=== PATIENT | female | born 1955 | race Caucasian/White ===

== ENCOUNTER → 2021-09-10 11:23 | Outpatient (CLI) | payer MEDICARE, OTHER, SELFPAY ==
[2021-09-10 12:12] LABS: Hemoglobin A1C% w Est Avg Glu 4.8 % (4.0-6.0)
[2021-09-10 12:19] LABS: Alanine Aminotransferase 21 IU/L (<35); Albumin 4.6 g/dL (3.5-5.0); Albumin Globulin Ratio 1.6 (1.0-2.8); Alkaline Phosphatase 75 U/L (38-126); Aspartate Aminotransferase 26 IU/L (14-36); BUN Creatinine Ratio 13.2 (6-22); Bilirubin Total 0.7 mg/dL (0.2-1.3); Blood Urea Nitrogen 12 mg/dL (7-17); Calcium 9.5 mg/dL (8.4-10.2); Carbon Dioxide 31 mmol/L (22-32); Chloride 100 mmol/L (98-107); Cholesterol 190 mg/dL (140-199); Estimated Glomerular Filt Rate > 60.0 mL/min (>60); Globulin 2.8 g/dL (1.7-4.1); Glucose 88 mg/dL (80-110); HDL Cholesterol 62 mg/dL (40-60); HEMOLYSIS < 15 (0-50); LDL Cholesterol Calculated 105 mg/dL (<100); Potassium 4.5 mmol/L (3.4-5.1); Sodium 139 mmol/L (137-145); Total Protein 7.4 g/dL (6.3-8.2); Triglycerides 115 mg/dL (35-150)
[2021-09-10 12:20] LABS: Add Manual Diff / Slide Review NO; Basophils Absolute Auto 0 /uL (0-100); Basophils Percent Auto 0.5 % (0-2); Eosinophils Absolute Auto 200 /uL (0-450); Eosinophils Percent Auto 2.3 % (2-4); Hematocrit 41.7 % (36-46); Hemoglobin 14.3 g/dL (12.0-16.0); Lymphocytes Absolute Auto 2100 /uL (1100-4500); Lymphocytes Percent Auto 31.6 % (25-40); Mean Corpuscular HGB Conc 34.4 % (30-36); Mean Corpuscular Hemoglobin 31.5 PG (26-34); Mean Corpuscular Volume 91.5 fL (80-100); Monocytes Absolute Auto 300 /uL (0-900); Neutrophils Absolute Auto 3900 /uL (1500-7000); Neutrophils Percent Auto 60.6 % (50-75); Platelet Count 278 X10^3/uL (150-400); Red Blood Cell Count 4.55 X10^6/uL (4.0-5.2); Red Cell Distribution Width 12.6 % (11.6-14.8); White Blood Cell Count 6.5 X10^3/uL (4.5-11.0)
[2021-09-10 12:34] LABS: Vitamin D 25 Hydroxy (D3) 60.9 ng/mL (30.0-100.0)
--- NOTE | 2021-09-10 12:46 | DI.US.S_ITS ---
PROCEDURE: US THYROID INDICATIONS: HISTORY ENLARGED THYROID, HYPOTHYROIDISM TECHNIQUE: Real-time scanning was performed of the thyroid gland, with image documentation. COMPARISON: None. FINDINGS: Right: Thyroid lobe measures 3.8 x 1.1 x 1.8 cm, and is homogeneous in echotexture. Left: Thyroid lobe measures 3.5 x 1.4 x 1.2 cm, and is homogenous in echotexture. Isthmus: 2.8 mm thick. Nodule number: 1 Location: Inferior left Size: 0.5 x 0.3 x 0.3cm. Composition: Solid Echogenicity: Hypoechoic Shape: wider than tall. Margins: Small Echogenic foci: Non Total points: 4 ACR TI-RADS category: 4 Nodule number: 2 Location: Superior right Size: 2.2 x 1.0 x 1.2 cm. Composition: Solid Echogenicity: Hypoechoic Shape: wider than tall. Margins: Small Echogenic foci: Non4 Total points: 4 ACR TI-RADS category: 4 IMPRESSION: 1. Bilateral moderately suspicious thyroid nodules. 2. Recommend fine-needle aspiration biopsy of the right superior pole nodule. . ACR TI-RADS definitions and recommendations: TI-RADS 1 (benign): 0 points. FNA not needed. TI-RADS 2 (not suspicious): 2 points. FNA not needed. TI-RADS 3 (mildly suspicious): 3 points. * FNA if 2.5 cm or larger, follow up if 1.5 cm or larger (at 1, 3, and 5 years). TI-RADS 4 (moderately suspicious): 4-6 points. * FNA if 1.5 cm or larger, follow up if 1 cm or larger (at 1, 2, 3, and 5 years). TI-RADS 5 (highly suspicious): 7 points or more. * FNA if 1 cm or larger, follow up if 0.5 cm or larger (every year for 5 years). Dictated by: Ann Escobar M.D. on 09/10/2021 at 15:22 Approved by: Ann Escobar M.D. on 09/10/2021 at 15:28
[2021-09-10 12:48] LABS: TSH w/ Reflex to FT4 0.48 uIU/mL (0.47-4.68)
[2021-09-10 17:00] LABS: Microalbumin Urine Random < 0.6 mg/dL (0-1.6)
== END ==
PROVIDERS: PCP Family Medicine; Referring Provider Family Medicine; Visit Provider Family Medicine
DX: E04.2 Nontoxic multinodular goiter (principal); E03.9 Hypothyroidism, unspecified; E11.9 Type 2 diabetes mellitus without complications; E78.5 Hyperlipidemia, unspecified; E55.9 Vitamin D deficiency, unspecified; I10 Essential (primary) hypertension
CPT/HCPCS: 36415; 76536; 80053; 80061; 82043; 82306; 82570; 83036; 84443; 85025

== ENCOUNTER → 2021-09-28 10:08 | Outpatient (CLI) | payer MEDICARE, OTHER, SELFPAY ==
--- NOTE | 2021-09-28 | PATH_ITS ---
Note [facility] Accession Number: [id number] TESTS RESULT FLAG UNITS REF RANGE LAB Clinician Provided Cytology Information No. of containers..01 Other (Miscellaneous) No. of containers..02 Previously Prepared Cytology Slide Source: RIGHT THYROID NODULE DIAGNOSIS: RIGHT THYROID NODULE NEGATIVE FOR MALIGNANT CELLS. BETHESDA CATEGORY II - BENIGN. SPECIMEN CONSISTS OF BENIGN FOLLICULAR CELLS, HEMOSIDERIN-LADEN MACROPHAGES, COLLOID, AND BLOOD. THIS PATTERN IS CONSISTENT WITH A COLLOID NODULE. Pathologist ICD10: 02 E04.1 Clinical history: Right: Thyroid lobe measures 3.8 x 1.1 x 1.8 cm, and is homogeneous in echotexture. Left: Thyroid lobe measures 3.5 x 1.4 x 1.2 cm, and is homogenous in echotexture. Isthmus: 2.8 mm thick. Signed out by: Gordo William MD, PhD, Pathologist NPI- [id number] Performed by: Nathaniel Hilario, [employer] ([facility]) Gross description: 30 CC, RED, CLEAR /LCS 09/29/2021 0827 Local FLAG LEGEND: L-Low Normal,H-High Normal,LL-Alert Low,HH-Alert High <-Panic Low,>-Panic High,A-Abnormal,AA-Critical Abnormal Performed at: 01 =Z [facility] [address] [place] [address], [place] [address] Ger Collado MD, 02 [facility] [address] [place] [address] Lesvia Silver MD, Performed at: 01 [facility] [address] [place] [address], [place], [place] [id number] MD Ger Collado MD Phone: [phone]
--- NOTE | 2021-09-28 10:11 | DI.US.S_ITS ---
PROCEDURE: US FINE NEEDLE ASPIRATION INDICATIONS: moderately suspicious thyroid nodule TECHNIQUE: The indications, alternatives, benefits, risks, and complications of the procedure were explained to the patient. Written informed consent was obtained and placed in the chart. The thyroid region was examined sonographically and a site was chosen for ultrasound guided percutaneous sampling. The skin was prepared and draped in the usual fashion, and anesthetized with 1% lidocaine infiltrated from the skin down to the thyroid gland. Multiple passes were then performed, with contents emptied into an appropriate pathology specimen container. A bandage was applied to the area of access at completion of the study. COMPARISON: [facility], , US THYROID, 09/10/2021, 13:19. FINDINGS: Location(s) of lesion(s) sampled: Right lobe nodule [place]: 25 gauge hypodermic needles. Number of passes: 6 Medications: 1% lidocaine for local anaesthesia. Complications: None. IMPRESSION: Successful ultrasound-guided thyroid nodule fine needle aspiration, with cytology results pending. Please see chart below for management recommendations based on cytology results. [facility] ReportingRecommendationsNon-diagnostic* Repeat US-guided FNA, with on-site cytology evaluation if possible. * Repeated non-diagnostic nodules without high suspicion US features: close observation vs surgical consult. * Consider surgery if nodule has high suspicion US features, grows >20% in 2 dimensions on followup, or patient has clinical risk factors for malignancy. Benign* If nodule has high suspicion US features: repeat US and FNA within 12 months. * If nodule has low to intermediate suspicion US features: repeat US at 12-24 months. If nodule grows (20% increase in at least 2 dimensions, with minimal increase of 2 mm or >50% change in volume), or development of new suspicious US features, then repeat FNA or continue followup. * If nodule has very low suspicion US features: followup US at >24 months. Atypia of undetermined significance, follicular lesion of undetermined significanceRepeat FNA, molecular testing, followup US, or surgical consult.Follicular neoplasm, suspicious for follicular neoplasmSurgical consult; also consider molecular testing. Suspicious for malignancySurgical consult.MalignantSurgical consult. Dictated by: Kaur Carpio MD, PhD on 09/28/2021 at 11:52 Approved by: Kaur Carpio MD, PhD on 09/28/2021 at 11:52
== END ==
PROVIDERS: PCP Family Medicine; Referring Provider Family Medicine; Visit Provider Family Medicine
DX: E04.1 Nontoxic single thyroid nodule (principal)
CPT/HCPCS: 10005

== ENCOUNTER → 2021-09-30 13:40 | Outpatient (CLI) | payer MEDICARE, OTHER, SELFPAY ==
--- NOTE | 2021-09-30 16:53 | DIAB.MNT ---
Initial Diabetes Medical Nutrition Therapy Assessment Name: Deyanira Smith (Radha) Date: 09/30/21 Time: 2-330p Dx: Type II Diabetes Provider: Adryan Worrell Learning Style: Watching, hands on, reading Radha presents today for initial nutrition visit. States she has had prediabetes or diabetes since 2005 or 2006. States she cannot recall a FBG or HgA1c high enough for DM, but she is unsure. Reports h/o hypoglycemia as a young adult and child, indicating potential for pancreas over production of insulin and BG management issues. Taking Metformin 500 mg daily with hgA1c of 4.8% and FBG of 88 mg/dL. She tells me today that her main goal this year is to get off medications, primarily Metformin, statin, and losartan. In terms of Metformin, if provider agrees, she could trial d/c of Metformin given low hgA1c and FBG. Asked her to discuss this further with her PCP. Her recent total cholesterol was in goal, but LDL was slightly elevated. Also, she reports a h/o of HTN, HLD, and stroke with her father. Radha describes a long history of weight management struggles beginning when she was age 39 and rx'd prednisone for 6 weeks for asthma. This resulted i n a 50# weight gain. She was dx with Hashimotos and started menopause in her 50s. She experienced the loss of her first from cancer two years prior and struggled with depression which also resulted in weight gain. Radha reports h/o being very active with work and body building. She seems very motivated to lose weight. Her goal weight is 135#, but states she has never been able to get below 170# as an older adult. She has tried weight watchers, medically assisted weight loss, very low calorie diets, and medications for weight loss. She continues to track her food intake and aims for 8952-9184 kcals per day. In the past year she has been very successful in her weight loss. Since tracking food she has lost 24#, 6 off her waist, and lost 4% body fat per her lazara and scale. Diet Recall: 10a: lemon water with tsp honey, tea with half n half and fruit smoothie with protein OR eggs 2p: bone broth with lemon and tsp whipped butter 4p: popcorn and dates OR paleobar (9g sat fat) OR trail mix 6-7p: meal prep low carb meals (pro 30-45g, CHO 15-20g, Na 600-1600mg, sat fat 6-12g) 8p: fruit Anthropometrics: Ht: 5'5 Wt: 177# reported Weight history: UBW 170-180# reported goal: 135# oct 2020: 201.6# Physical Activity: 5k steps per day or less. Main barrier is exercise induced asthma. Walks stairs 4-6 x in succession q day for exercise. Uses pilates reformer 3 x per week. Wt lifting UE hand wts daily. Has a treadmill in the basement, but states it is too cold right now. Self-Monitoring Blood Glucose: None and likely not indicated per HgA1c. Diabetes Medications: 500 mg Metformin Pertinent Labs: 09/22 HgA1c: 4.8% Glucose 88 Cholesterol: 190 LDL: 105 H HDL: 62 T Past Medical History: (Last Updated 09/03/21 @ 13:01 by Dominik Cornelius MD) Acquired hypothyroidism Chronic pain syndrome DM2 (diabetes mellitus, type 2) Hyperlipidemia Hypertension Osteoarthritis cervical spine Nutrition Rx: [id number] kcals 2000-2300mg Na 7-9g saturated fat Nutrition Diagnosis: - Excessive Na intake r/t convenience meals aeb pt report and nutrient info - Suboptimal physical activity r/t low step count indicating increased sedentary time aeb pt report - Excessive saturated fat intake r/t convenience meals and snacks aeb diet recall Intervention: This participant was very receptive. Provided appropriate educational handouts. Discussed the following topics: Completed intake assessment. Discussed barriers to care. Metabolic impact of her health hx and weight changes Pathophysiology of T2DM or prediabetes with pancreas insufficiencies HgA1c and FBG current and at goal Plate Method, pairing macronutrients Recommended nutrition rx for heart health and Dm Heart health nutrition: Na, sat fat, fiber Brainstormed physical activity goals Cholesterol and genetics and aging LBM changes and age and menopause Potential for more realistic weight goals and focusing more on increasing LBM and decreasing waist circumference Created SMART goals for patient self-care and success. Goals: Aim for 7500 steps per day Call insurance about MNT coverage Read food labels for sat fat and sodium Follow-up: DARLENE ROUSE follow-up in 3-4 weeks Seems as though Radha is doing very well with managing her DM. Her diet seems fairly balanced, with exception of the sat fat and sodium intake mostly at dinner. She has been told by providers in [place] that she needs to eat less. Seems she is doing well with 5467-0787 kcals per day. Weight loss has been very important to her historically. There is certainly some considerations that may make weight changes more difficult, ie age, menopause, thyroid. With that being said, increasing steps and LBM may benefit her metabolically. She reports that her weight often goes down and then she re-gains. Will follow-up with her to try and mitigate the re-gain and offer education/accountability support. Nadege Conley RDN, [facility] Certified Diabetes Care and Pot [employer]r P: [phone] Thank you for this referral
== END ==
PROVIDERS: PCP Family Medicine; Referring Provider Family Medicine; Visit Provider Family Medicine
DX: E11.9 Type 2 diabetes mellitus without complications (principal); Z79.84 Long term (current) use of oral hypoglycemic drugs
CPT/HCPCS: 97802

== ENCOUNTER → 2021-10-15 11:32 | Outpatient (CLI) | payer MEDICARE, OTHER, SELFPAY ==
--- NOTE | 2021-10-15 11:34 | DI.MG.S_ITS ---
BILATERAL DIGITAL SCREENING MAMMOGRAM 3D/2D WITH CAD: 10/15/2021 CLINICAL: Routine screening. Comparison is made to exams dated: 07/11/2020 mammogram, 07/19/2019 mammogram, and 07/11/2018 mammogram - outside facility. There are scattered fibroglandular elements in both breasts. Current study was also evaluated with a Computer Aided Detection (CAD) system. No significant masses, calcifications, or other findings are seen in either breast. There has been no significant interval change. IMPRESSION: NEGATIVE There is no mammographic evidence of malignancy. A 1 year screening mammogram is recommended. This exam was interpreted at Station ID: [id number]. NOTE: For mammograms, a report in lay terms will be sent to the patient. Approximately 15% of breast malignancies will not be visualized mammographically. In the management of a palpable breast mass, a negative mammogram must not discourage biopsy of a clinically suspicious lesion. Electronically Signed By: Ger macdonald/jean:10/15/2021 15:55:19 letter sent: Normal Exam ACR BI-RADS Category 1: Negative [id number]
== END ==
PROVIDERS: PCP Family Medicine; Referring Provider Family Medicine; Visit Provider Family Medicine
DX: Z12.31 Encounter for screening mammogram for malignant neoplasm of breast (principal); E03.9 Hypothyroidism, unspecified
CPT/HCPCS: 77063; 77067

== ENCOUNTER → 2021-10-29 13:04 | Outpatient (CLI) | payer MEDICARE, OTHER, SELFPAY ==
[2021-10-29 13:57] LABS: COVID19 -Nasal RAPID Negative (Negative)
== END ==
PROVIDERS: PCP Family Medicine; Referring Provider Internal Medicine; Visit Provider Internal Medicine
DX: Z20.822 Contact with and (suspected) exposure to COVID-19 (principal)
CPT/HCPCS: 87635; C9803

== ENCOUNTER → 2021-10-29 13:06 | Outpatient (CLI) | payer MEDICARE, OTHER, SELFPAY ==
--- NOTE | 2021-10-29 15:23 | DIAB.MNTFU ---
Follow-up Diabetes Medical Nutrition Therapy Assessment Name: Deyanira Smith (Radha) Date: 10/29/21 Time: 150-250p Dx: Type II Diabetes Radha presents for follow-up visit. PCP has d/c'd Metformin given recent WNL HgA1c. Radha continues to feel unsatisfied with her body weight and shape. Feels the central adiposity is unhealthy and wants to have the goal of 135#. She is willing to adjust this goal temporarily to just get under 170# which seems realistic. Cont tracking food intake with lazara. Aiming for 1200-1300kcals. She is wondering if she should adjust her macros. Currently eating 50% carbs, 40% fat and 10%protein per lazara stats for last week. Essentially not getting quite enough protein and over consuming fat kcals. Radha's main barrier to weight loss may be physical activity and perhaps metabolic barriers (age, thyroid, menopause). Provider has offered her medication to assist with weight loss, but she is not certain she wants to go that route. States she is scheduled for her regular eye appt next month. Has not found a dentist since moving here. Was due for exam and cleaning last Aug. Has questions about Na recs per day and per meal. Has been label reading. Anthropometrics: Ht: 5'5 Wt: 174.1# reported home wt, approx 3# loss in one month Weight history: 177# last visit reported UBW 170-180# reported goal: 135# oct 2020: 201.6# Physical Activity: continues to use stairs for exercise. Endorses slight increase in steps per day of 5-6k (previously 4-5k). Pilates machine broken, but normally does this 3 x per week. Has been rollerskating instead, but had a recent fall that req ED visit. CT scan completed and clear per pt. Getting pulmonary test today and hoping for inhaler that will work for her. Albuterol causes cough. New inhaler from PCP >$200 per month per her report. Self-Monitoring Blood Glucose: None Diabetes Medications: none (recent d/c of Metformin) Pertinent Labs: 09/22 HgA1c: 4.8% Glucose 88 Cholesterol: 190 LDL: 105 H HDL: 62 T Past Medical History: (Last Reviewed 10/26/21 @ 14:45 by Hernán Obrien MD) Acquired hypothyroidism (~2005) Gagandeep's Actinic keratosis (~2004) Allergies Asthma (~1993) Cervical spine disease (~1993) Chicken pox Chlamydia and trichomoniasis; multiple times in the 70's Chronic cough (~1993) Chronic neck pain (~1993) Chronic pain syndrome CMV (cytomegalovirus infection) (~1979) Depression 1996 and 2003 DM2 (diabetes mellitus, type 2) Fractures (~1962) Right arm Headache (~1993) Hepatitis (~1969) History of left salpingo-oophorectomy Hyperlipidemia Hypertension Knee pain (~2019) Measles Mumps Osteoarthritis cervical spine Pneumonia x2, age 6 and 20 Psoriasis (~2004) Psoriatic arthritis (~2019) Rosacea (~2009) S/P cervical spinal fusion (~1998) Shoulder pain (~1993) Skin cancer (~2017) Basal and squamous Sleep apnea (~2007) Vertigo Multiple times Wears glasses Nutrition Rx: [id number] kcals: 40-45% carbs, 30% fat, 30% pro 2000-2300mg Na 7-9g saturated fat Nutrition Diagnosis: - Excessive Na intake r/t convenience meals aeb pt report and nutrient info- in progress - Suboptimal physical activity r/t low step count indicating increased sedentary time aeb pt report- improved - Excessive saturated fat intake r/t convenience meals and snacks aeb diet recall- in progress Intervention: This participant was very receptive. Provided appropriate educational handouts. Discussed the following topics: Macronutrient distribution recs and kcal recs Na recs per day and per meal Impact of metabolic factors and physical activity on weight motivation for weight loss and goal weight Diabetes risk reduction: dental, eye Created SMART goals for patient self-care and success. Goals: Aim for 7500 steps per day- in progress Call insurance about MNT coverage- met Read food labels for sat fat and sodium- met Find a dentist- new Adjust macros as discussed- new Cont to work on physical activity safely- new Follow-up: DARLENE MADERAES follow-up in 3 months Radha would like to follow-up since she cont to aim for weight loss and also somewhat worries that her BG could increase now that she is off Metformin. She can likely be d/c'd from DM ed program in my opinion, but will provide support in the interim for her goals until next HgA1c. It seems the main barrier is physical activity. Hopefully with a new inhaler she can improve her physical activity time. Nadege Conley RDN, [facility] Certified Diabetes Care and Textile Conservator P: [phone] Thank you for this referral
== END ==
PROVIDERS: PCP Family Medicine; Referring Provider Family Medicine; Visit Provider Family Medicine
DX: E11.9 Type 2 diabetes mellitus without complications (principal); Z71.3 Dietary counseling and surveillance
CPT/HCPCS: 97803

== ENCOUNTER → 2021-10-29 13:08 | Outpatient (CLI) | payer MEDICARE, OTHER, SELFPAY ==
--- NOTE | 2021-11-04 09:24 | PM.PFT.1 ---
Pulmonary Function Test Referral & Results Date Patient Seen: 10/29/21 Requesting provider: Dominik Cornelius Results: The spirometry demonstrates an FVC of 2.54 L which is 79% of predicted. The FEV1 was measured at 2.09 L which is 85% of predicted. The FEV1/FVC ratio was 82 which is 106% of predicted. Following the administration of bronchodilator there was no appreciable change. Lung volumes show an SVC of 2.56 L which is 84% of predicted. The diffusing capacity was measured at 17.77 which is 69% of predicted. No hemoglobin value was provided, so no correction for potential anemia could be made, if appropriate. The maximum voluntary ventilation was reduced Interpretation: This study demonstrates probably normal spirometry. There is a reduction in diffusing capacity suggesting mild to moderate disease at the capillary alveolar level. There is also reduction in maximum voluntary ventilation although this is minimal in the absence of significant spirometric abnormalities this suggest the possibility of neuromuscular disease Clinical correlation suggested
== END ==
PROVIDERS: PCP Family Medicine; Referring Provider Family Medicine; Visit Provider Family Medicine
DX: J45.909 Unspecified asthma, uncomplicated (principal); J98.8 Other specified respiratory disorders; Z20.822 Contact with and (suspected) exposure to COVID-19; Z87.891 Personal history of nicotine dependence
CPT/HCPCS: 87635; 94060; 94726; 94729; C9803

== ENCOUNTER → 2021-11-04 08:59 | Outpatient (CLI) | payer MEDICARE, OTHER, SELFPAY ==
--- NOTE | 2021-11-04 09:00 | DI.MRI.S_ITS ---
PROCEDURE: MR STROKE Pre- and post-contrast brain MRI, non-contrast brain MR angiogram, pre- and postcontrast neck MR angiogram INDICATIONS: Transient neurologic deficit TECHNIQUE: Brain: Noncontrast axial T1 spin echo, axial T2 fast spin echo, sagittal and axial FLAIR, coronal T2 fast spin echo, axial gradient echo, axial diffusion and ADC through the brain. After the administration of contrast, axial 3D VIBE of the cranial vasculature and brain. Brain MRA: Non-contrast 3-D time of flight MR angiogram, with multiple kqbqreu-lwuuzatku-ciznbrxoyg (MIP) reformats performed. Neck MRA: Axial and sagittal TruFISP through the neck. Coronal dynamic MR angiogram during administration of contrast in the arterial and venous phases, with 3-dimenstional lhfujbb-jizseexxp-yrsvzgyeuj (MIP) reformats constructed from subtraction images. COMPARISON: None. FINDINGS: Image quality: Excellent. BRAIN: CSF spaces: Ventricles are normal in size and shape. Basal cisterns are patent. No extra-axial fluid collections. Brain: No intracranial bleeds or mass effects. Carvajal-white matter interface is normal. Diffusion weighted images show no acute ischemic insults. Brainstem appears normal. Normal intravascular flow voids are present. No abnormal intracranial enhancement. Skull and face: Calvarial marrow signal is normal. Orbits appear normal. Sinuses: Sinuses and mastoids are clear. BRAIN MR ANGIOGRAM: Anterior circulation: Intracranial internal carotid arteries are normal in size and enhancement. The flow within the paired anterior cerebral arteries is normal and symmetric. The flow within the middle cerebral arteries is normal and symmetric. The anterior communicating artery is seen. No stenoses, occlusions, or aneurysms. Diminutive left vertebral artery terminates in the left posterior inferior cerebellar artery. 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 The P2 segments supplied by a widely patent posterior communicating arteries. The flow within the remaining posterior cerebral arteries is normal and symmetric. No stenoses, occlusions, or aneurysms. NECK MR ANGIOGRAM: Carotids: Great vessels demonstrate a conventional anatomy as they arise from the aortic arch. The origins of the common carotid arteries appear patent. The calibers and courses of both common carotid arteries are normal. The bifurcation regions appear normal bilaterally. The internal carotid arteries demonstrate normal course and caliber. Posterior circulation: Right vertebral artery dominance. 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 Origin of the left vertebral artery is not well evaluated, and may be below the threshold of detection Miscellaneous: Subclavian arteries appear patent. Pre-contrast images through the neck show no soft tissue abnormalities. IMPRESSION: BRAIN MRI: Mild atrophy and multifocal white matter chronic ischemic change without intracranial hemorrhage, infarct or mass lesion. BRAIN MR ANGIOGRAM: Unremarkable intracranial vascularity without aneurysm, large vessel occlusion or vascular malformation. NECK MR ANGIOGRAM: No evidence of hemodynamically significant stenosis. Origin of the left congenitally diminutive vertebral artery not well evaluated. Approved by: Lance Shaikh M.D. on 11/04/2021 at 13:33
== END ==
PROVIDERS: PCP Family Medicine; Referring Provider Family Medicine; Visit Provider Family Medicine
DX: G45.9 Transient cerebral ischemic attack, unspecified (principal)
CPT/HCPCS: 70548; 70553; A9579

== ENCOUNTER → 2021-11-19 10:11 | Outpatient (CLI) | payer MEDICARE, OTHER, SELFPAY | PROVIDERS: PCP Family Medicine; Referring Provider Ophthalmology; Visit Provider Ophthalmology | DX: H16.201 Unspecified keratoconjunctivitis, right eye (principal) | CPT/HCPCS: 87070; 87205 ==

== ENCOUNTER → 2021-12-30 11:13 | Outpatient (CLI) | payer MEDICARE, OTHER, SELFPAY ==
[2021-12-30 12:44] LABS: COVID19 -Nasal RAPID Negative (Negative)
== END ==
PROVIDERS: PCP Family Medicine; Visit Provider Family Medicine Sleep Medicine
DX: Z20.822 Contact with and (suspected) exposure to COVID-19 (principal)
CPT/HCPCS: 87635; C9803

== ENCOUNTER → 2021-12-31 09:15 | Outpatient (CLI) | payer MEDICARE, OTHER, SELFPAY ==
--- NOTE | 2021-12-31 10:03 | DI.NM.S_ITS ---
PROCEDURE: NM CHELY PERF SPECT REST & STR Rest and exercise myocardial perfusion SPECT with gated imaging and ejection fraction RADIOPHARMACEUTICAL: 12.0 mCi Tc-99m sestamibi IV at rest and 25.5 mCi Tc-99m sestamibi IV at peak exercise. A 8-hux-mydcwalj was performed. INDICATIONS: Exertional dyspnea, hypertension, TIA TECHNIQUE: Radiopharmaceutical was injected at peak stress test, and also at rest. SPECT images were obtained. SPECT myocardial perfusion images were displayed in short axis, horizontal long axis, and vertical long axis views. Gated images were reviewed using AUPE[employer]! software. COMPARISON: None. CARDIAC STRESS: A standard Yared treadmill exercise tolerance test was performed by the patient under the supervision of an attending staff. The patient exercised for 7 minutes and 46 seconds; 10.1 METS; functional aerobic impairment (MALISSA) is -27%. Hemodynamic data: There is normal blood pressure and heart rate response to exercise stress. Patient achieved 91% of maximum predicted heart rate at peak exercise at 139 bpm. Max BP 174/86. Symptoms: Patient denied chest pain during exercise. EKG: No diagnostic EKG changes of ischemia; no ectopy. FINDINGS: Raw data: There is good myocardial labeling by radiotracer. No significant motion artifacts. Nlyr-ko-vibwg ratio is 0.38 (normal is less than 0.38 for sestamibi tracer, and less than 0.50 for thallium tracer). Left ventricle function: Gated images demonstrate normal left ventricle wall thickening. No segmental wall motion abnormality. No transient ischemic dilation; TID is 0.87 (normal less than 1.3). The left ventricle resting end-diastolic volume is 62 mL. Left ventricle stress ejection fraction is >75%; normal values are above 45%. Myocardial perfusion: There is normal distribution of activity in the left and right ventricular myocardium. No fixed or reversible perfusion defects. IMPRESSION: 1. No evidence of exercise-induced ischemia on ECG or SPECT imaging. 2. Normal blood pressure response to exercise. 3. Very good exercise capacity. Dictated by: Adilia Lemus D.O. on 12/31/2021 at 17:12 Approved by: Adilia Lemus M.D. on 12/31/2021 at 17:15
--- NOTE | 2021-12-31 10:03 | DI.ECHO.S_ITS ---
[facility] +---------+ : : [address] : [place] [address] [address] : : : : [id number] : : : : Phone: [phone]+ Echocardiogram Report + + :Name: VIANNEY OLIVEIRA Study Date: 12/31/2021 Height: 65 in : :[facility] ReadingLocation: Weight: 175 lb : : Gender: Female BSA: 1.9 m2 : :: 1955 Age: 66 yrs BP: 138/86 mmHg: :Reason For Study: TIA : :Ordering Physician: SEB, : :SHAAN Performed By: Elzbieta Reid : :Referring: SHAAN GRIGSBY : + + Interpretation Summary The ejection fraction is estimated to be 60-65%. Injection of contrast documented no interatrial shunt. There is mild mitral regurgitation. There is mild tricuspid regurgitation. Procedure: A two-dimensional transthoracic echocardiogram with color flow and Doppler was performed. The study quality was technically adequate. There is no prior echocardiogram noted for this patient. A saline contrast injection was performed to assess for cardiac shunting. The patient was in sinus rhythm with heart rates between 53-70 bpm during the exam. Left Ventricle: The left ventricle is normal in size and wall thickness. The ejection fraction is estimated to be 60-65%. Left ventricular wall motion is normal. Right Ventricle: The right ventricle is normal in size and function. Atria: The left atrial size is normal. Right atrial size is normal. There is no Doppler evidence for an interatrial shunt. Injection of contrast documented no interatrial shunt. Mitral Valve: The mitral valve is normal in structure and function. There is mild mitral regurgitation. Aortic Valve: The aortic valve is trileaflet. The aortic valve opens well. There is no aortic valve stenosis. No aortic regurgitation is present. Tricuspid Valve: The tricuspid valve is normal in structure and function. There is mild tricuspid regurgitation. Pulmonic Valve: The pulmonic valve leaflets are thin and pliable; valve motion is normal. There is mild pulmonic regurgitation. Great Vessels: The aortic root is normal size. The dimensions of the ascending aorta are normal. The IVC is of normal diameter and collapses greater than 50% with a sniff. This suggests a low right atrial pressure of 3 mm Hg. Pericardium/ Pleura There is no pericardial effusion. There is no pleural effusion. MMode/2D Measurements & Calculations LVIDd: 4.4 cm LVOT diam: 1.9 cm LVIDs: 2.5 cm Ao root diam: 2.9 cm FS: 43.1 % asc Aorta Diam: 3.1 cm IVSd: 0.89 cm Ao Arch Diam (Prox Trans): 2.8 cm LVPWd: 0.80 cm LV carranza. diameter/BSA (cm/m^2): 2.4 LV sys. diameter/BSA (cm/m^2): 1.3 LA A2 area: 16.0 cm2 RA long axis: 4.5 cm LA A4 area: 17.3 cm2 RA area: 13.6 cm2 LA length (vol): 5.4 cm RA vol: 35.0 ml LA vol: 43.3 ml RA : 18.7 ml/m2 LA vol index: 23.2 ml/m2 IVC diam: 2.0 cm RVD1 (basal): 2.8 cm TAPSE: 2.2 cm Doppler Measurements & Calculations Ao V2 max: 164.0 cm/sec LVOT Max Rico: 114.0 cm/sec Ao V2 mean: 97.4 cm/sec LV V1 max P.2 mmHg Ao max P.8 mmHg LV V1 VTI: 26.1 cm Ao mean P.6 mmHg IFEANYI(I,D): 2.0 cm2 Ao V2 VTI: 35.9 cm IFEANYI(V,D): 1.9 cm2 sev ratio: 0.73 IFEANYI indexed to BSA (cm^2/m^2): 1.1 MV E max rico: 115.1 cm/sec PA V2 max: 97.1 cm/sec MV A max rico: 92.6 cm/sec PA V2 mean: 65.3 cm/sec MV E/A: 1.2 PA mean P.9 mmHg Med Peak E' Rico: 8.2 cm/sec PA pr(Accel): 36.2 mmHg E/E' med: 14.0 Lat Peak E' Rico: 8.5 cm/sec E/E' lat: 13.6 E/e' average: 13.8 MV dec time: 0.20 sec SV(LVOT): 71.7 ml Reading Physician:01:57 PM
== END ==
PROVIDERS: PCP Family Medicine; Referring Provider Family Medicine; Visit Provider Family Medicine
DX: G45.9 Transient cerebral ischemic attack, unspecified (principal); I10 Essential (primary) hypertension; R06.00 Dyspnea, unspecified; I08.1 Rheumatic disorders of both mitral and tricuspid valves
CPT/HCPCS: 78452; 93017; 93306; A9502

== ENCOUNTER → 2022-01-21 12:05 | Outpatient (CLI) | payer MEDICARE, OTHER, SELFPAY ==
--- NOTE | 2022-01-21 12:07 | DI.CT.S_ITS ---
PROCEDURE: CT CHEST WO CON INDICATIONS: chronic shortness of breath TECHNIQUE: Noncontrast 5 mm thick sections acquired from the pulmonary apices to the posterior costophrenic angles. 1 mm lung window, 5 mm thick coronal and sagittal and 7 mm axial MIP reformats were then acquired. For radiation dose reduction, the following was used: automated exposure control, adjustment of mA and/or kV according to patient size. COMPARISON: None. FINDINGS: Image quality: Excellent. Lungs and pleura: No acute air space opacities. Scattered small calcified granulomas are seen bilaterally. Accessory azygos fissure is noted at the right upper lobe, a normal variant. No pleural effusions or pneumothorax. Central and peripheral airways are patent and normal in caliber. Mediastinum: Heart size is normal. No pericardial effusion. A right-sided aortic arch is seen with retroesophageal course of the left subclavian artery. No mediastinal adenopathy by size criteria. Thoracic aorta and central pulmonary arteries are normal in size. Esophagus is normal in caliber. No hiatal hernia. Bones and chest wall: No suspicious bony lesions. No vertebral body compression fractures. No axillary or supraclavicular adenopathy by size criteria. Thyroid is unremarkable. Abdomen: An exophytic cyst is seen at the superior pole of the left kidney. Visualized upper abdominal solid organs and bowel loops appear normal in the absence of contrast. IMPRESSION: 1. No significant abnormality is seen in the chest to explain the reported symptoms. 2. Normal variant right-sided aortic arch with retropharyngeal course of the left subclavian artery. Dictated by: Jonathan Pierre M.D. on 01/21/2022 at 15:10 Approved by: Jonathan Pierre M.D. on 01/21/2022 at 15:17
== END ==
PROVIDERS: PCP Family Medicine; Referring Provider Family Medicine; Visit Provider Family Medicine
DX: J45.909 Unspecified asthma, uncomplicated (principal); R06.02 Shortness of breath; R05.3 Chronic cough; R06.00 Dyspnea, unspecified
CPT/HCPCS: 71250

== ENCOUNTER → 2022-04-29 12:41 | Outpatient (CLI) | payer MEDICARE, OTHER, SELFPAY ==
[2022-04-29 13:31] LABS: Add Manual Diff / Slide Review NO; Basophils Absolute Auto 0 /uL (0-100); Basophils Percent Auto 0.4 % (0-2); Eosinophils Absolute Auto 200 /uL (0-450); Eosinophils Percent Auto 2.1 % (2-4); Hematocrit 39.5 % (36-46); Hemoglobin 13.9 g/dL (12.0-16.0); Lymphocytes Absolute Auto 1400 /uL (1100-4500); Lymphocytes Percent Auto 19.3 % (25-40); Mean Corpuscular Hemoglobin 31.5 PG (26-34); Monocytes Absolute Auto 600 /uL (0-900); Monocytes Percent Auto 7.7 % (3-14); Neutrophils Absolute Auto 5100 /uL (1500-7000); Neutrophils Percent Auto 70.5 % (50-75); Platelet Count 234 X10^3/uL (150-400); Red Blood Cell Count 4.39 X10^6/uL (4.0-5.2); Red Cell Distribution Width 12.3 % (11.6-14.8); White Blood Cell Count 7.3 X10^3/uL (4.5-11.0)
[2022-04-29 13:48] LABS: Alanine Aminotransferase 23 IU/L (<35); Albumin 4.9 g/dL (3.5-5.0); Albumin Globulin Ratio 1.7 (1.0-2.8); Alkaline Phosphatase 67 U/L (38-126); Aspartate Aminotransferase 29 IU/L (14-36); BUN Creatinine Ratio 18.5 (6-22); Bilirubin Total 0.4 mg/dL (0.2-1.3); Blood Urea Nitrogen 17 mg/dL (7-17); Calcium 9.3 mg/dL (8.4-10.2); Carbon Dioxide 32 mmol/L (22-32); Chloride 97 mmol/L (98-107); Estimated Glomerular Filt Rate > 60 mL/min (>60); Globulin 2.9 g/dL (1.7-4.1); Glucose 78 mg/dL (80-110); HEMOLYSIS < 15 (0-50); Potassium 3.5 mmol/L (3.4-5.1); Sodium 138 mmol/L (137-145); Total Protein 7.8 g/dL (6.3-8.2)
[2022-04-29 13:49] LABS: NT-proBNP (BNP-Adult 18+) 75 pg/mL (<125)
[2022-04-29 13:52] LABS: Hemoglobin A1C% w Est Avg Glu 5.2 % (4.0-6.0)
[2022-04-29 13:57] LABS: D Dimer < 200 ng/mL (<230)
[2022-04-29 14:15] LABS: Ferritin 52 ng/mL (11-264)
[2022-04-29 14:24] LABS: HEMOLYSIS 16 (0-50); Iron 66 ug/dL (37-170)
[2022-04-29 14:29] LABS: Vitamin B12 > 1000 pg/mL (239-931)
[2022-04-29 14:35] LABS: Percent Iron Saturation 14 % (15-50); Total Iron Binding Capacity 479 ug/dL (265-497); Transferrin 379 mg/dL (206-381)
[2022-04-29 14:56] LABS: TSH w/ Reflex to FT4 1.72 uIU/mL (0.47-4.68)
[2022-04-29 15:22] LABS: Creatinine Urine Random 38.3 mg/dL
[2022-04-29 15:28] LABS: Microalbumin Urine Random < 0.6 mg/dL (0-1.6)
[2022-04-29 16:25] LABS: Vitamin D 25 Hydroxy (D3) 57.2 ng/mL (30.0-100.0)
[2022-04-29 16:26] LABS: Hep C Virus Ab w/Reflex Quant NEGATIVE s/c (NEGATIVE)
[2022-05-02 10:41] LABS: Cholesterol, Total 191 mg/dL (100-199); HDL-Cholesterol 55 mg/dL (>39); HDL-Particle (Total) 42.6 umol/L (>=30.5); LDL Particle 1215 nmol/L (<1000); LDL Size 20.5 nm (>20.5); LDL-Cholsterol 92 mg/dL (0-99); LP-IR Score 81 (<=45); Small LDL- Particle 471 nmol/L (<=527); Triglycerides 268 mg/dL (0-149)
== END ==
PROVIDERS: PCP Family Medicine; Referring Provider Pediatrics; Visit Provider Pediatrics
DX: E11.9 Type 2 diabetes mellitus without complications (principal); E55.9 Vitamin D deficiency, unspecified; I10 Essential (primary) hypertension; E03.9 Hypothyroidism, unspecified; E53.8 Deficiency of other specified B group vitamins; E78.2 Mixed hyperlipidemia; G89.4 Chronic pain syndrome; L40.50 Arthropathic psoriasis, unspecified; R06.00 Dyspnea, unspecified; G45.9 Transient cerebral ischemic attack, unspecified; G47.33 Obstructive sleep apnea (adult) (pediatric); Z87.898 Personal history of other specified conditions
CPT/HCPCS: 36415; 80053; 80061; 82043; 82306; 82570; 82607; 82728; 83036; 83540; 83550; 83704; 83880; 84443; 85025; 85379; 86803; 99213

== ENCOUNTER → 2023-04-27 09:22 | Outpatient (CLI) | payer MEDICARE, OTHER, SELFPAY ==
--- NOTE | 2023-04-27 09:24 | DI.CT.S_ITS ---
PROCEDURE: CT ABDOMEN PELVIS W CON INDICATIONS: Right upper quadrant and flank pain TECHNIQUE: After the administration of oral and intravenous contrast, axial sections were acquired from the lung bases to the pubic symphysis. Coronal and sagittal reformats were performed. For radiation dose reduction, the following was used: automated exposure control, adjustment of mA and/or kV according to patient size. COMPARISON:None. FINDINGS: Image quality: Excellent. Lung bases: Unremarkable. Heart: No significant findings. ABDOMEN: Liver: Unremarkable. Gallbladder: Unremarkable. Biliary ducts: Unremarkable. Pancreas: Unremarkable. Spleen: Unremarkable. Adrenal Glands: Unremarkable. Kidneys and Ureters: Left renal simple cyst. The kidneys otherwise enhance symmetrically without hydronephrosis. The ureters are normal in course and caliber. Stomach and Bowel: Stomach, small bowel loops, and colon are unremarkable. Peritoneum: No abnormal intraperitoneal fluid. No free air. Ventral Wall: No hernia. Abdominal Nodes: No retroperitoneal or mesenteric adenopathy by size criteria. Vessels: Aorta and inferior vena cava are normal in size. Atherosclerotic vascular calcifications. PELVIS: Pelvic Organs: Unremarkable. Bladder: Unremarkable. Pelvic Nodes: No enlarged lymph nodes. Miscellaneous: No inguinal hernias are seen. Bones: Degenerative changes of the lumbar spine. IMPRESSION: No acute findings to explain patient's symptoms. No calcified gallstones. Dictated by: Anton Michaels M.D. on 04/27/2023 at 14:56 Approved by: Anton Michaels M.D. on 04/27/2023 at 15:02
== END ==
PROVIDERS: PCP Family Medicine; Referring Provider Family Medicine; Visit Provider Family Medicine
DX: R10.11 Right upper quadrant pain (principal)
CPT/HCPCS: 74177; Q9967

== ENCOUNTER → 2023-06-21 16:22 | Outpatient (CLI) | payer MEDICARE, OTHER, SELFPAY ==
--- NOTE | 2023-06-21 16:24 | DI.RAD.S_ITS ---
PROCEDURE: XR SHOULDER LT MIN 2V INDICATIONS: pain x 2 mos, mostly lateral/deltoid area, TECHNIQUE: 3 views of the shoulder were acquired. COMPARISON: None. FINDINGS: Bones: No fractures or dislocations. No suspicious bony lesions. Visualized ribs appear intact. Soft tissues: No suspicious soft tissue calcifications. IMPRESSION: No evidence acute bony abnormality. If clinical suspicion and/or symptoms persist, further assessment with repeat plain films, or advanced imaging (e.g., CT, MRI, or bone scan) may be helpful for further assessment. Dictated by: Blake North M.D. on 06/21/2023 at 17:39 Approved by: Blake North M.D. on 06/21/2023 at 17:40
== END ==
PROVIDERS: PCP Family Medicine; Referring Provider Physician Assistant; Visit Provider Physician Assistant
DX: M12.812 Other specific arthropathies, not elsewhere classified, left shoulder (principal)
CPT/HCPCS: 73030

== ENCOUNTER → 2023-07-01 10:56 | Outpatient (CLI) | payer MEDICARE, OTHER, SELFPAY ==
--- NOTE | 2023-07-01 | DI.MG.S_ITS ---
BILATERAL DIGITAL SCREENING MAMMOGRAM 3D/2D WITH CAD: 07/01/2023 CLINICAL: Routine screening. Comparison is made to exams dated: 10/15/2021 mammogram - [facility], 07/11/2020 mammogram, 07/19/2019 mammogram, and 07/11/2018 mammogram - outside facility. There are scattered areas of fibroglandular density in both breasts (category b / 25%-50% glandular tissue). Current study was also evaluated with a Computer Aided Detection (CAD) system. No significant masses, calcifications, or other findings are seen in either breast. There has been no significant interval change. IMPRESSION: NEGATIVE There is no mammographic evidence of malignancy. A 1 year screening mammogram is recommended. Based on the Tyrer Cuzick model (a risk assessment model) the patient's lifetime risk is 6.5% and her 10 year risk is 3.7%. According to the ACR, ACS, and NCCN guidelines, an annual breast MRI exam along with mammogram is recommended if the patient's lifetime risk is 20% or greater. This exam was interpreted at Station ID: [id number]. NOTE: For mammograms, a report in lay terms will be sent to the patient. Approximately 15% of breast malignancies will not be visualized mammographically. In the management of a palpable breast mass, a negative mammogram must not discourage biopsy of a clinically suspicious lesion. Electronically Signed By: Shan person/jean:07/01/2023 14:47:57 letter sent: Normal Exam ACR BI-RADS Category 1: Negative [id number]
== END ==
PROVIDERS: PCP Family Medicine; Referring Provider Family Medicine; Visit Provider Family Medicine
DX: Z12.31 Encounter for screening mammogram for malignant neoplasm of breast (principal)
CPT/HCPCS: 77063; 77067

== ENCOUNTER → 2023-07-27 | Outpatient (CLI) | payer MEDICARE, OTHER, SELFPAY ==
--- NOTE | 2023-07-27 12:15 | DI.MRI.S_ITS ---
PROCEDURE: MR SHOULDER LT WO CON INDICATIONS: Adhesive capsulitis of left shoulder TECHNIQUE: Noncontrast oblique coronal T2 fast spin echo with fat saturation, oblique sagittal T1 spin echo and T2 fast spin echo with fat saturation, axial T1 spin echo and T2 fast spin echo with fat saturation through the shoulder. COMPARISON: None. FINDINGS: Image quality: Excellent. Rotator cuff: Low-grade articular and bursal surface partial thickness tear involving distal supraspinatus at its insertion on the humeral head is seen extending to musculotendinous junction. Distal infraspinatus tendinosis is noted. The subscapularis tendon is intact. No full-thickness rotator cuff tendon rupture. Sagittal images demonstrate mild to moderate supraspinatus muscle atrophy. Bones and bursae: No bone marrow contusions or fractures. [id number] acromioclavicular joint osteoarthritic changes are seen with downward osteophyte formation depressing on musculotendinous junction of supraspinatus. The acromion demonstrates conventional anatomy, without an os acromiale. Small amount of joint effusion and subacromial subdeltoid bursal fluid is seen. Capsule and soft tissues: There is subtle fraying of superior anterior labrum at 12 to 1 o'clock position suggestive of subtle superior anterior labral tear. The long head of the biceps tendon demonstrates normal location and morphology. Fibrotic changes are noted within rotator interval. The coracohumeral ligament is thickened. IMPRESSION: 1. Fibrosis seen within rotator interval with thickened coracohumeral ligament concerning for developing adhesive capsulitis. Small amount of joint effusion and subacromial subdeltoid bursal fluid. 2. Low-grade articular and bursal surface partial thickness tear involving distal supraspinatus extending to musculotendinous junction. Distal infraspinatus tendinosis. No full-thickness rotator cuff tendon rupture. Mild to moderate supraspinatus muscle atrophy. 3. Mild to moderate acromioclavicular joint osteoarthritis. No fracture or dislocation. 4. Suggestion of subtle superior anterior labral tear at 12 to 1 o'clock position. Dictated by: Chintan Gudino M.D. on 07/27/2023 at 14:59 Approved by: Chintan Gudino M.D. on 07/27/2023 at 15:17
== END ==
PROVIDERS: PCP Family Medicine; Referring Provider Internal Medicine Cardiovascular Disease; Visit Provider Internal Medicine Cardiovascular Disease
DX: M75.112 Incomplete rotator cuff tear or rupture of left shoulder, not specified as traumatic (principal); M75.02 Adhesive capsulitis of left shoulder; M19.012 Primary osteoarthritis, left shoulder; M25.412 Effusion, left shoulder; Z86.73 Personal history of transient ischemic attack (TIA), and cerebral infarction without residual deficits
CPT/HCPCS: 73221; 93880

== ENCOUNTER → 2023-07-27 | Outpatient (CLI) | payer MEDICARE, OTHER, SELFPAY ==
--- NOTE | 2023-07-27 12:03 | DI.US.S_ITS ---
PROCEDURE: US CAROTID DOPPLER BI INDICATIONS: HX OF TIA TECHNIQUE: Color and pulse Doppler interrogation was performed of both carotid systems, with image documentation and velocity measurements. COMPARISON: [facility], MR, MR STROKE, 11/04/2021, 9:08. FINDINGS: Stenosis calculations are based on SRU (Society of Radiologists in Ultrasound) criteria. The flow velocities and the arterial waveforms are normal within both carotid arterial systems. Minimal atherosclerotic plaque is seen on both sides. The estimated degree of internal carotid artery stenosis is less than 50%. Antegrade flow is confirmed within both vertebral arteries. IMPRESSION: No hemodynamically significant stenosis is seen. Dictated by: Nahum Bales M.D. on 07/27/2023 at 12:56 Approved by: Nahum Bales M.D. on 07/27/2023 at 12:57
== END ==
PROVIDERS: PCP Family Medicine; Referring Provider Orthopaedic Surgery; Visit Provider Orthopaedic Surgery
DX: M75.02 Adhesive capsulitis of left shoulder (principal)
CPT/HCPCS: 93880

== ENCOUNTER → 2025-07-19 13:43 | Outpatient (CLI) | payer MEDICARE, OTHER, SELFPAY ==
--- NOTE | 2025-07-19 13:44 | DI.MG.S_ITS ---
MM screening mammo BI: 07/19/2025. BI-RADS: 1 CLINICAL: 69-year old female for bilateral screening mammogram. Tyrer-Cuzick lifetime risk of 4.4%. No personal or first-degree family history of breast cancer. PRIOR EXAMS 07/01/2023, 10/15/2021, outside films dated 07/11/2020 and 07/11/2018. MAMMOGRAPHY TECHNIQUE: 2D and 3D (tomosynthesis) digital mammographic views obtained, with additional images as needed for full coverage. Current study was also evaluated with a Computer Aided Detection (CAD) system. DENSITY B. There are scattered areas of fibroglandular density. MAMMOGRAPHY FINDINGS Bilateral: No suspicious mass, asymmetry, microcalcification, or other abnormality seen. IMPRESSION: * No evidence of malignancy. RECOMMENDATIONS Bilateral * Annual screening mammography. OVERALL ASSESSMENT CATEGORY BI-RADS-1: Negative. The [employer] recommends annual screening mammography beginning at age 40 for women with average risk of breast cancer. ELECTRONICALLY SIGNED: Cathy Cesar M.D. on 07/21/2025 at 11:04:22 PM PT Interpreting Station ID: [id number]
== END ==
LOC: MAMMO 13:44
PROVIDERS: PCP Family Medicine; Referring Provider Family Medicine; Visit Provider Family Medicine
DX: Z12.31 Encounter for screening mammogram for malignant neoplasm of breast (principal)
CPT/HCPCS: 77063; 77067

== ENCOUNTER → 2025-07-19 13:45 | Outpatient (CLI) | payer MEDICARE, OTHER, SELFPAY ==
--- NOTE | 2025-07-19 13:45 | DI.RAD.S_ITS ---
PROCEDURE: XR DEXA AXIAL SKELETON INDICATIONS: Osteoarthritis COMPARISON: None. FINDINGS: Lumbar Spine: Bone mineral density 1.128 g/cm2, T score 0.7. Left Femoral Neck: Bone mineral density is 0.772 g/cm2, T score -0.7. Left Hip: Bone mineral density is 0.953 g/cm2, T score 0.1. Fracture Risk Calculation (when applicable): FRAX score not reported due to T-scores greater than or equal to -1.0. (T score greater or equal to -1.0 to: NORMAL) (T score from -1.1 to -2.4: OSTEOPENIA) (T score less than or equal to -2.5: OSTEOPOROSIS) IMPRESSION: By WHO criteria, patient has normal bone mineral density. Follow-up guidelines as follows: Osteoporosis: Consider a repeat DEXA and Vertebral Fracture Assessment (VFA) exam in 2 years or sooner if medically necessary, to reassess this patient's status. Osteopenia: Consider a repeat DEXA in 2-3 years to reassess this patient's status, or if there is a new clinical indication. Normal: Consider a repeat DEXA in 5 years or sooner, or if there is a new clinical indication. All treatment decisions require clinical judgment and consideration of individual patient factors, including patient preferences, comorbidities, previous drug use, risk factors not captured in the FRAX model (e.g., frailty, falls, vitamin D deficiency, increased bone turnover, interval significant decline in bone density ) and possible under- or over-estimation of fracture risk by FRAX. In addition, the NOF Guide recommends that FDA-approved medical therapies be considered in postmenopausal women and men age >= 50 years with a: * Hip or vertebral (clinical or morphometric) fracture * T-score of <=-2.5 at the spine or hip * Ten-year fracture probability by FRAX of >= 3% for hip fracture or >=20% for major osteoporotic fracture. Dictated by: Sandra MULLEN Interpreted: Jonathan Pierre MD on 07/19/2025 at 14:37 Transcribed by: YASMIN on 07/19/2025 at 14:41 Approved by: Jonathan Pierre M.D. on 07/19/2025 at 20:06
== END ==
LOC: RAD 13:45
PROVIDERS: PCP Family Medicine; Referring Provider Family Medicine; Visit Provider Family Medicine
DX: M85.89 Other specified disorders of bone density and structure, multiple sites (principal); Z12.11 Encounter for screening for malignant neoplasm of colon
CPT/HCPCS: 77080; 82274

== ENCOUNTER → 2025-09-20 14:51 | Outpatient (CLI) | payer MEDICARE, OTHER, SELFPAY ==
--- NOTE | 2025-09-20 14:53 | DI.ECHO.S_ITS ---
[facility]---------+ [facility] : : [address] : : [place] : : [id number] : : Phone: [phone] Echocardiogram Report + + :Name: VIANNEY OLIVEIRA Study Date: 09/20/2025 Height: 65 in : :[facility] ReadingLocation: Weight: 160 lb : : Gender: Female BSA: 1.8 m2 : :: 1955 Age: 70 yrs BP: 138/78 mmHg: :Reason For Study: ENAMORADO : :Ordering Physician: NELSON, : :ADILIA Reynaga Performed By: Cj Castellanos : :Referring: ADILIA DAMON : + + Interpretation Summary Left ventricular wall thickness is mildly increased. The ejection fraction is estimated to be 65-70%. Diastolic function is indeterminate. The right ventricle is normal in size and function. There is mild mitral regurgitation. There is mild tricuspid regurgitation. The right ventricular systolic pressure is estimated to be at least 21 mmHg based on an estimated right atrial pressure of 3 mm Hg. No significant change compared to prior study 12/31/2021. Procedure: A two-dimensional transthoracic echocardiogram with color flow and Doppler was performed. The study quality was technically adequate. Comparison is made with the echocardiogram of 12/31/2021. The heart rate ranged between 67-80 bpm during the study. The patient was in normal sinus rhythm during the exam. Left Ventricle: The left ventricle is normal in size. Left ventricular wall thickness is mildly increased. Left ventricular systolic function is normal. The ejection fraction is estimated to be 65-70%. There are no focal wall motion abnormalities. Diastolic function is indeterminate. Right Ventricle: The right ventricle is normal in size and function. Atria: The left atrial size is normal. Right atrial size is normal. There is no Doppler evidence for an interatrial shunt. Mitral Valve: The mitral valve leaflets appear to open well. There is no mitral valve stenosis. There is mild mitral regurgitation. Aortic Valve: The aortic valve is trileaflet. The aortic valve opens well. There is no aortic valve stenosis. No aortic regurgitation is present. Tricuspid Valve: The tricuspid valve is not well visualized, but is grossly normal. There is mild tricuspid regurgitation. The right ventricular systolic pressure is estimated to be at least 21 mmHg based on an estimated right atrial pressure of 3 mm Hg. Pulmonic Valve: The pulmonic valve is not well seen, but is grossly normal. There is mild pulmonic regurgitation. Great Vessels: The aortic root is normal size. The ascending aorta is normal in size. The aortic arch could not be visualized. The pulmonary artery is normal size. The IVC is of normal diameter and collapses greater than 50% with a sniff. This suggests a low right atrial pressure of 3 mm Hg. Pericardium/ Pleura There is no pericardial effusion. MMode/2D Measurements & Calculations LVIDd: 3.8 cm LVOT diam: 2.0 cm LVIDs: 2.3 cm Ao root diam: 3.0 cm FS: 39.5 % asc Aorta Diam: 3.1 cm IVSd: 1.1 cm LVPWd: 1.2 cm LV carranza. diameter/BSA (cm/m^2): 2.1 LV sys. diameter/BSA (cm/m^2): 1.3 LA A2 area: 15.6 cm2 IVC diam: 1.8 cm LA A4 area: 14.5 cm2 LA length (vol): 5.4 cm LA vol: 35.6 ml LA vol index: 19.8 ml/m2 RVD1 (basal): 2.6 cm RVD2 (mid): 2.3 cm TAPSE: 2.6 cm Doppler Measurements & Calculations Ao V2 max: 146.0 cm/sec LVOT Max Rico: 135.9 cm/sec Ao V2 mean: 96.9 cm/sec LV V1 max P.4 mmHg Ao max P.5 mmHg LV V1 VTI: 28.3 cm Ao mean P.5 mmHg IFEANYI(I,D): 2.9 cm2 Ao V2 VTI: 29.6 cm IFEANYI(V,D): 2.8 cm2 sev ratio: 0.96 IFEANYI indexed to BSA (cm^2/m^2): 1.6 MV E max rico: 117.7 cm/sec TR max rico: 228.5 cm/sec MV A max rico: 109.5 cm/sec TR max P.0 mmHg MV E/A: 1.1 PA V2 max: 103.3 cm/sec Med Peak E' Rico: 8.0 cm/sec PA V2 mean: 67.4 cm/sec E/E' med: 14.7 PA mean P.1 mmHg Lat Peak E' Rico: 7.0 cm/sec PA pr(Accel): 43.0 mmHg E/E' lat: 16.8 E/e' average: 15.8 MV dec time: 0.18 sec SV(LVOT): 84.8 ml Reading Physician:03:49 PM
== END ==
LOC: ECHO 14:52
PROVIDERS: PCP Family Medicine; Referring Provider Internal Medicine Cardiovascular Disease; Visit Provider Internal Medicine Cardiovascular Disease
DX: I08.1 Rheumatic disorders of both mitral and tricuspid valves (principal); I50.32 Chronic diastolic (congestive) heart failure; R06.09 Other forms of dyspnea
CPT/HCPCS: 93306